=== PATIENT | female | born 1940 | race Caucasian/White ===

== ENCOUNTER → 2018-08-15 | Outpatient (CLI) | payer MEDICARE ==
--- NOTE | 2018-08-15 23:23 | MR ---
EXAMINATION TYPE: MR hip RT wo con DATE OF EXAM: 08/15/2018 COMPARISON: None HISTORY: right hip pain; r/o fracture Standard multiplanar, multisequence MRI departmental protocol Multiplanar, multisequence images of the right hip were acquired. FINDINGS: The proximal right femur is intact. There is no sign of avascular necrosis. There is mild h ip joint space narrowing. There is minor acetabular spurring. There is slight increased joint fluid o n the right side compared to the left. There is no evidence of a pelvic mass. Bladder distends smooth ly. There is no free fluid in the pelvis. Sacroiliac joints appear intact. I see no focal bone destru ction. IMPRESSION: There is a small right-sided hip joint effusion compared to the left. This is suggestive of mild syno vitis. Mild osteoarthritic joint space narrowing. No fracture. No evidence of avascular necrosis.
== END | disposition home or self-care (01) ==
LOC: RADMRIMAIN 11:48
PROVIDERS: ATTEND Orthopaedic Surgery
DX: M16.11 Unilateral primary osteoarthritis, right hip (principal)